=== PATIENT | female | born 1995 | race Asian ===

== ENCOUNTER 2018-06-14 16:30 | Inpatient (IN) | payer OTHER ==
[2018-06-14] MEDS: LACTATED RINGER'S 1,000 ML IV (20:26)
[2018-06-14] MEDS ORDERED: OXYTOCIN 30 UNITS/LR 500 ML IV ×2 (20:30→21:00)
[2018-06-14] MEDS ORDERED: CARBOPROST 250 MCG INJ IM (20:30)
[2018-06-14] MEDS ORDERED: METHYLERGONOVINE 0.2 MG INJ IM (20:30)
[2018-06-14] MEDS ORDERED: MISOPROSTOL 200 MCG TAB PR (20:30)
[2018-06-14 20:54] LABS: ADD MAN DIFF? NO
[2018-06-14 20:56] LABS: BASOPHILS % 0.4 % (0.0-2.0); EOSINOPHILS # 0.2 10^3/ul (0.0-0.5); EOSINOPHILS % 1.9 % (0.0-7.0); HEMATOCRIT 38.9 % (37.0-47.0); HEMOGLOBIN 12.7 g/dl (12.0-16.0); LYMPHOCYTES # 2.4 10^3/ul (0.8-2.9); MEAN CORPUSCULAR HEMOGLOBIN 30.3 pg (29.0-33.0); MEAN CORPUSCULAR HGB CONC 32.6 g/dl (32.0-37.0); MEAN CORPUSCULAR VOLUME 92.8 fl (82.0-101.0); MEAN PLATELET VOLUME 12.4 fl (7.4-10.4); MONOCYTE # 0.8 10^3/ul (0.3-0.9); MONOCYTES % 8.2 % (0.0-11.0); NEUTROPHIL # 5.8 10^3/ul (1.6-7.5); PLATELET COUNT 174 10^3/UL (140-415); RED BLOOD COUNT 4.19 10^6/ul (4.20-5.40); RED CELL DISTRIBUTION WIDTH 14.4 % (11.5-14.5)
[2018-06-14 20:56] LABS: WHITE BLOOD COUNT 9.2 10^3/ul (4.8-10.8)
[2018-06-14] MEDS ORDERED: MISOPROSTOL 50 MCG CAPSULE VAG (21:00)
[2018-06-14 21:17] LABS: INR 0.84; PROTIME 11.6 Sec (11.9-14.9); PT RATIO 0.9
[2018-06-14 21:45] LABS: HEPATITIS B SURFACE ANTIGEN NEGATIVE (NEGATIVE)
[2018-06-14] MEDS: MISOPROSTOL 50 MCG CAPSULE VAG (23:22)
[2018-06-15] MEDS: LACTATED RINGER'S 1,000 ML IV ×5 (02:35→21:56)
[2018-06-15] MEDS: MISOPROSTOL 50 MCG CAPSULE VAG ×4 (03:34→16:03)
[2018-06-15] MEDS ORDERED: OXYTOCIN 30 UNITS/LR 500 ML IV (08:00)
[2018-06-15] MEDS: BUTORPHANOL 2 MG INJ IV (15:02)
[2018-06-15] MEDS ORDERED: FENTAnyl 2MCG/ML-ROPIV 0.2% 100 ML BAG EPI (20:30)
[2018-06-15] MEDS ORDERED: NALOXONE (0.4 MG/ML) INJ IV (20:30)
[2018-06-15 22:08] LABS: RAPID PLASMA REAGIN NONREACTIVE (NR)
[2018-06-15] MEDS: OXYTOCIN 30 UNITS/LR 500 ML IV (23:34)
[2018-06-16] MEDS: LIDOCAINE 1% (MPF) 30 ML INJ INJ (06:19)
[2018-06-16] MEDS: MINERAL OIL LIGHT 10 ML VIAL TOP ×2 (06:19→09:41)
[2018-06-16] MEDS: OXYTOCIN 30 UNITS/LR 500 ML IV ×2 (06:36→09:57)
[2018-06-16] MEDS: IBUPROFEN 600 MG TAB PO ×4 (06:50→23:37)
[2018-06-16] MEDS ORDERED: METHYLERGONOVINE 0.2 MG INJ IM (08:30)
[2018-06-16] MEDS ORDERED: ZOLPIDEM 5 MG TAB PO (08:30)
[2018-06-16] MEDS ORDERED: OXYCODONE/ASPIRIN (4.88/325) TAB PO ×2 (08:30)
[2018-06-16] MEDS ORDERED: CARBOPROST 250 MCG INJ IM (08:30)
[2018-06-16] MEDS ORDERED: OXYTOCIN 30 UNITS/LR 500 ML IV (08:30)
[2018-06-16] MEDS ORDERED: MISOPROSTOL 200 MCG TAB PR (08:30)
[2018-06-16] MEDS: SENNA/DOCUSATE NA (8.6MG/50MG) TAB PO ×2 (09:41→21:49)
[2018-06-16] MEDS: WITCH HAZEL/GLYCERIN PAD PR (09:41)
[2018-06-16] MEDS: BENZOCAINE 20% 56 ML SPRAY TOP (09:41)
[2018-06-16] MEDS: LANOLIN HPA 1 PKT TOP (09:42)
[2018-06-16] MEDS: LACTATED RINGER'S 1,000 ML IV (20:18)
[2018-06-17] MEDS: LACTATED RINGER'S 1,000 ML IV ×2 (04:18→12:18)
[2018-06-17] MEDS: IBUPROFEN 600 MG TAB PO ×4 (05:50→23:49)
[2018-06-17 06:52] LABS: ADD MAN DIFF? NO
[2018-06-17 06:55] LABS: BASOPHILS % 0.4 % (0.0-2.0); EOSINOPHILS # 0.2 10^3/ul (0.0-0.5); EOSINOPHILS % 2.7 % (0.0-7.0); HEMATOCRIT 30.1 % (37.0-47.0); HEMOGLOBIN 9.8 g/dl (12.0-16.0); LYMPHOCYTES # 2.2 10^3/ul (0.8-2.9); LYMPHOCYTES % 28.5 % (15.0-51.0); MEAN CORPUSCULAR HEMOGLOBIN 30.5 pg (29.0-33.0); MEAN CORPUSCULAR HGB CONC 32.6 g/dl (32.0-37.0); MEAN CORPUSCULAR VOLUME 93.8 fl (82.0-101.0); MEAN PLATELET VOLUME 11.5 fl (7.4-10.4); MONOCYTE # 0.6 10^3/ul (0.3-0.9); MONOCYTES % 8.2 % (0.0-11.0); NEUTROPHIL # 4.7 10^3/ul (1.6-7.5); NEUTROPHILS % 59.7 % (39.0-77.0); PLATELET COUNT 133 10^3/UL (140-415); RED BLOOD COUNT 3.21 10^6/ul (4.20-5.40); RED CELL DISTRIBUTION WIDTH 14.6 % (11.5-14.5)
[2018-06-17 06:55] LABS: WHITE BLOOD COUNT 7.8 10^3/ul (4.8-10.8)
[2018-06-17] MEDS: SENNA/DOCUSATE NA (8.6MG/50MG) TAB PO ×2 (08:50→20:29)
[2018-06-18] MEDS: IBUPROFEN 600 MG TAB PO ×2 (05:32→12:07)
[2018-06-18] MEDS: SENNA/DOCUSATE NA (8.6MG/50MG) TAB PO (09:56)
[2018-06-18] MEDS: DIPHTH/TET/ACEL PERTUSS (ADULT) 0.5 ML VIAL IM* (12:07)
== END 2018-06-18 14:55 | disposition home or self-care (01) | DRG 807 ==
LOC: OBT 16:30 → PP1 06-16 08:20 → L-D 16:31 → OBT 19:40 → L-D 19:44
PROVIDERS: Obstetrics & Gynecology
PROC: 10E0XZZ Delivery of Products of Conception, External Approach (ICD-10-PCS; principal; 2018-06-16)
PROC: 0KQM0ZZ Repair Perineum Muscle, Open Approach (ICD-10-PCS; 2018-06-16)
PROC: 3E033VJ Introduction of Other Hormone into Peripheral Vein, Percutaneous Approach (ICD-10-PCS; 2018-06-16)
DX: O70.1 Second degree perineal laceration during delivery (principal); Z37.0 Single live birth; Z3A.39 39 weeks gestation of pregnancy
CPT/HCPCS: 62319; 76815; 76818; 85025; 85610; 85730; 86592; 86850; 86900; 86901; 87340; 90686; 90715